=== PATIENT | female | born 1965 | race Caucasian/White ===

== ENCOUNTER 2016-07-25 11:27 | Emergency (ER) | payer MEDICARE ==
[2016-07-25 10:37] LABS: BASOPHILS 0.4 %; BASOPHILS ABSOLUTE 0.03 10/3/uL (0.0-0.16); EOSINOPHILS ABSOLUTE 0.07 10/3/uL (0.0-0.53); IMMATURE GRANULOCYTES 2.5 %; IMMATURE GRANULOCYTES ABSOLUTE 0.17 10/3/uL (0.0-0.11); LYMPHOCYTES 7.4 %; MEAN CORPUS HGB CONC 33.2 g/dL (32.0-36.0); MEAN CORPUSCULAR HEMOGLOB 30.6 pg (26.0-34.0); MEAN CORPUSCULAR VOLUME 92.2 fL (80-100); MEAN PLATELET VOLUME 9.5 fL (9.2-13.0); MONOCYTES 6.4 %; MONOCYTES ABSOLUTE 0.43 10/3/uL (0.21-1.20); NEUTROPHILS 82.3 %; NEUTROPHILS ABSOLUTE 5.53 10/3/uL (2.02-8.40); PLATELET COUNT 176 10/3/uL (150-400); RBC DISTRIBUTION WIDTH 14.2 % (12.0-16.0)
[2016-07-25 10:38] LABS: ER CBC TAT 0 Hrs 11 Mins; HEMATOCRIT 37.6 % (36.0-48.0); HEMOGLOBIN 12.5 g/dL (12.0-16.0); MANUAL DIFF NO %; RED CELL COUNT 4.08 10/6/uL (4.0-5.6); WHITE BLOOD CELLS 6.7 10/3/uL (4.5-10.5)
[2016-07-25 10:44] LABS: ASCORBIC ACID (UR NOT ORDER) NEG (NEG); BILIRUBIN, URINE NEGATIVE (NEG); ER URINALYSIS TAT 0 Hrs 08 Mins; KETONE, URINE NEGATIVE (NEG); LEUKOCYTE ESTERASE(NOT OR NEG (NEG); NITRITE (URINE) NEG (NEG); WBC (NOT ORDERED) (RFLEX) 1 (0-5)
[2016-07-25 10:46] LABS: INFLUENZA A SCREEN NEGATIVE (NEGATIVE); INFLUENZA B SCREEN NEGATIVE (NEGATIVE)
[2016-07-25 10:53] LABS: ALBUMIN 3.5 G/DL (3.5-5.0); ALKALINE PHOSPHATASE 135 U/L (45-117); BUN (BLOOD UREA NITROGEN) 31 MG/DL (6-23); CALCIUM, SERUM 8.8 MG/DL (8.5-10.4); CHLORIDE, SERUM 110 MMOL/L (96-112); CO2 (CARBON DIOXIDE) 22 MMOL/L (24-34); CREATININE 1.85 MG/DL (0.55-1.02); GFR AFRICAN AMERICAN 35 ML/MIN (>=60); GFR NON AFRICAN AMERICAN 31 ML/MIN (>=60); GLOBULIN 3.4 G/DL (2.5-4.1); GLUCOSE, SERUM 80 MG/DL (60-99); POTASSIUM, SERUM 3.6 MMOL/L (3.5-5.3); SGOT(AST) 16 U/L (5-40); SGPT(ALT) 10 U/L (5-65); SODIUM, SERUM 143 MMOL/L (135-148); TOTAL BILIRUBIN 0.6 MG/DL (0-1.2); TOTAL PROTEIN 6.9 G/DL (6.0-8.5)
[~2016-07-25 11:27] MED LIST: ACET500CAP PO; APRES50 PO; ASAB PO; BAC PO; CARTIA XT240 MG/24 PO; CAT1 PO; CATAPRES3 TOP; CEFT5 PO; CELLCEPT2 PO; CELLCEPT5 PO; CENTRUM PO; CENTRUM TAB1 TAB PO; CULTURELLE OTC; DEMA20 PO; DIOVAN320 MG PO; DSS PO; FERROUS SULF325 M1 PO; HYDRALAZINE100 MG PO; IMU PO; IRON325 MG PO; KLONO2 PO; KLONO5 PO; L20 PO; L40 PO; LEVAQUIN5T PO; LEVAQUIN750 MG PO; LIPITOR10 PO; LOM PO; MULTIVITAMI1 PO; MYFORTIC180 MG PO; NEXIUM40 PO; NORV5 PO; P10 PO; P20 PO; P5 PO; PRAV10 PO; PROGRAF0.5 PO; PROGRAF1 PO; SENSIPAR30 M1 OR; SENSIPAR30 M1 PO; SENSIPAR30 MG OR; SENSIPAR30 MG PO; SENSIPAR60 MG OR; SEPTRA1 TAB PO; SODBICAR10 PO; TAZTIA X3 PO; V2 PO; VANCOCIN HCL125 MG PO; VITD PO; VIVELLE SY0.1 MG/24 TOP; VIVELLE-DOT0.025 MG TOP; VIVELLE-DOT0.1 MG TOP; WELCHOL 625 MG625 MG PO; WELCHOL625 MG OR; ZOVI200CAP PO
[2017-01-03] MEDS ORDERED: HIPREX1 GM PO (10:58)
[2017-01-03] MEDS ORDERED: LEVAQUIN5T PO (10:58)
[2017-01-23] MEDS ORDERED: PREDNISONE DOSEPACK (16:41)
[2017-02-18] MEDS ORDERED: CATAPRES3 TOP (14:09)
[2017-02-18] MEDS ORDERED: CIP5 PO (14:09)
[2017-02-18] MEDS ORDERED: FLORASTOR250 MG PO (14:10)
[2017-02-18] MEDS ORDERED: ESTRACE VAGIN42.5 GM V (14:10)
[2017-02-18] MEDS ORDERED: MACRO50B PO (14:11)
[2017-02-18] MEDS ORDERED: PROLOP100 PO (14:12)
[2017-02-18] MEDS ORDERED: ZOVI200CAP PO (14:12)
[2017-02-18] MEDS ORDERED: KLONO2 PO (14:13)
[2017-02-18] MEDS ORDERED: FERROUS SULF325 M1 PO (14:14)
[2017-02-18] MEDS ORDERED: DEMA20 PO ×2 (14:14)
[2017-02-18] MEDS ORDERED: SENSIPAR30 M1 PO (14:15)
[2017-02-18] MEDS ORDERED: PRAV10 PO (14:15)
[2017-02-18] MEDS ORDERED: PRILO PO (14:18)
[2017-02-18] MEDS ORDERED: VITD PO (14:18)
[2017-02-18] MEDS ORDERED: P20 PO (14:19)
[2017-02-18] MEDS ORDERED: P10 PO (14:19)
[2017-02-18] MEDS ORDERED: HYDRALAZINE100 MG PO (14:20)
[2017-02-18] MEDS ORDERED: CELLCEPT5 PO (14:20)
[2017-02-18] MEDS ORDERED: TAZTIA X3 PO (14:21)
[2017-02-18] MEDS ORDERED: CAT1 PO (14:21)
[2017-02-18] MEDS ORDERED: PROGRAF0.5 PO (14:21)
[2017-02-18] MEDS ORDERED: MULTIVIT/MIN PO (14:22)
[2017-02-18] MEDS ORDERED: CEFADROXIL1 GM PO (14:23)
[2017-02-18] MEDS ORDERED: HIPREX1 GM PO (14:23)
[2017-02-18] MEDS ORDERED: ACET500CAP PO (14:24)
[2017-02-22] MEDS ORDERED: COREG12 PO (15:44)
[2017-02-22] MEDS ORDERED: DURICEF PO (15:44)
== END 2016-07-25 11:35 | disposition home or self-care (01) ==
LOC: ER 11:27
PROVIDERS: Emergency Medicine
DX: J40 Bronchitis, not specified as acute or chronic (principal); I12.9 Hypertensive chronic kidney disease with stage 1 through stage 4 chronic kidney disease, or unspecified chronic kidney disease; N18.9 Chronic kidney disease, unspecified; Z94.0 Kidney transplant status; Z90.710 Acquired absence of both cervix and uterus; Z79.52 Long term (current) use of systemic steroids; Z79.899 Other long term (current) drug therapy
CPT/HCPCS: 71020; 80053; 81001; 85025; 87070; 87205; 87804; 96372; 99284

== ENCOUNTER 2016-09-13 05:59 | Inpatient (IN) | payer MEDICARE ==
--- NOTE | ~2016-09-13 | CN ---
Consultation Report [facility] [address] [place]. [address] NAME: THIERRY GLASGOW : 61 STATUS : ADM IN PAT#: [id number] AGE: 51 ADM/REG DATE : 09/14/16 MR#: [id number] REPORT SERV DATE: 09/14/16 DICTATED BY: RAÚL BHANDARI DATE: 09/14/16 REPORT STATUS : Draft TRANSCRIBED BY: MODL DATE: 09/14/16 INFECTIOUS DISEASE CONSULT DATE OF CONSULTATION: REASON FOR REFERRAL: Evaluation and treatment of infection in a renal transplant patient. HISTORY OF PRESENT ILLNESS: The patient is a 51-year-old female. She has a history of hypertension, obesity, polycystic kidney disease, which eventually led to end-stage renal disease, for that she underwent a , unrelated donor kidney transplant at [facility] in 2008. She has had also post-transplant lymphoproliferative disorder, and has been followed by Dr. Navarro, and that is currently in remission. She had generally been doing well and has noted any infections of any kind for almost a year. She developed some "bad smelling urine" last week, went ahead and got checked, and it was negative. That continued and then she developed dysuria and then high-spiking fevers two days ago and came in and was admitted that night. Urine was collected and it showed large leukocyte esterase positive and greater than 182 white blood cells. Today, urine is growing greater than 100,000 colonies of gram- negative shari. Blood cultures thus far are negative. She has continued to have fever. She has been on Rocephin now for just over 24 hours. Vancomycin was added earlier today, but that has been discontinued with the positive results of the urine culture. She is not complaining of headache, stiff neck, cough, or shortness of breath. She has had some nausea and a couple of episodes of diarrhea. No joint pain or skin rash. She lives in this area with her . He has not been ill. She has not traveled outside this area. She has a cat but no other animal exposure. Does not work outside the home, has had no unusual environmental exposures. PAST MEDICAL HISTORY: Otherwise unremarkable. MEDICATIONS: As described above. No known antimicrobial allergies. Nonsmoker. No history of alcohol or substance abuse, does not work outside the home. . Her is with her in the room. FAMILY HISTORY: Noncontributory. PHYSICAL EXAMINATION: GENERAL: On physical exam, nontoxic but tired-appearing adult female, in no acute distress at present. Alert and oriented x3. VITAL SIGNS: Temperature 99.7 at present with a pulse of 81, respirations 18, and blood pressure 157/70. Weight is 104 kg. HEENT: Sclerae clear. No oral lesions. NECK: Supple. Consultation Report [address] [place]. [address] NAME: THIERRY GLASGOW : 61 STATUS : ADM IN LOCATED WITHIN [facility]#: [id number] AGE: 51 ADM/REG DATE : 09/14/16 MR#: [id number] REPORT SERV DATE: 09/14/16 DICTATED BY: RAÚL BHANDARI DATE: 09/14/16 REPORT STATUS : Draft TRANSCRIBED BY: ALINE DATE: 09/14/16 LUNGS: Clear. HEART: Regular rate and rhythm. ABDOMEN: Soft, nontender. She has some mild costovertebral angle tenderness on the right side at which side, the transplanted kidney is on. EXTREMITIES: Without clubbing, cyanosis, or edema. No signs of cellulitis. LABORATORY DATA: White blood cell count 14.3, hematocrit 33.2, and platelets 172, normal differential on the white blood cell count. BUN and creatinine are 36 and 3.91, was 1.85 on 07/25. IMPRESSION: Suspect this is indeed pyelonephritis as a source for fever. I do not see any other likely sources. She does have gram-negative rods in her urine. In fact I am somewhat surprised her blood cultures were not positive. RECOMMENDATIONS: 1. We will change antibiotics to cefepime for better gram-negative coverage. We would also usually give a single dose of gentamicin but with the transplanted kidney, we will hold off on that. 2. Follow up cultures tomorrow. Change antibiotics as indicated. Finally, I will follow the patient with you. 3. I appreciate very much for your consulting on this patient. REYNA Raúl Bhandari M.D. / [id number] CC: Conrado Vora M.D. Rico Mcgill Jr, M.D.
--- NOTE | ~2016-09-13 | HP ---
History And Physical [address] [place]. [address] NAME: THIERRY GLASGOW : 61 STATUS : ADM Clem PAT#: [id number] AGE: 51 ADM/REG DATE : 09/13/16 MR#: [id number] REPORT SERV DATE: 09/13/16 DICTATED BY: DATE: REPORT STATUS : Draft TRANSCRIBED BY: MODL DATE: 09/13/16 DATE OF ADMISSION: 09/13/2016 CHIEF COMPLAINT: Fever and dysuria. HISTORY OF PRESENT ILLNESS: Ms Glasgow is a very pleasant, 51-year-old white female with a history of renal transplant at [facility], donor in 2008, followed in office by Dr. Vora. She is known to have polycystic kidney disease, recurrent UTIs. She states that she noticed last week an odor to her urine, went to the office, had a urine culture obtained, it came back negative, no antibiotics were provided. She was feeling relatively well and then last night at approximately 9:30, developed dysuria, followed by fever up to 103 at home, therefore presented to the emergency department. No nausea or vomiting. In general, today just body aches. Denies any shortness of breath, chest pain, tightness, or pressure. Denied any hematuria. No nausea or vomiting. PAST MEDICAL HISTORY: End-stage renal disease, transplant kidney in 2008 at [facility], polycystic kidney disease, hypertension, obesity, secondary hyperparathyroidism, anemia, and reflux. She also has posttransplant lymphoproliferative disorder, followed by Dr. Navarro, in remission. FAMILY MEDICAL HISTORY: End-stage renal disease in her mother. SOCIAL HISTORY: She is . No tobacco, alcohol, or illicit drug use. ALLERGIES: TOPAMAX, IODINE, AND IV DYE. MEDICATIONS: Cetirizine, Sensipar, Prograf, prednisone, pravastatin, Nexium, multivitamin, meclizine, Klonopin, hydralazine, Drisdol, Demadex, clonidine, CellCept, Bactrim, and acyclovir. REVIEW OF SYSTEMS: 12-point review of systems obtained, negative with the exception of that in HPI. PHYSICAL EXAMINATION: VITAL SIGNS: Temperature 102.7, blood pressure 190/78, pulse 90, respiratory rate 24, O2 saturation is 95%. GENERAL: This is a pleasant, cooperative, white female. She is awake, alert, and oriented x3. No acute distress and answers questions appropriately. HEENT: Normocephalic and atraumatic. Conjunctivae clear. Sclerae anicteric. Pupils are equal and round. Oral mucosa moist. NECK: No neck vein distention. PULMONARY: Respirations are even and unlabored. Breath sounds are clear to auscultation. CARDIOVASCULAR: Heart rate regular. No murmur, rub, or gallop. ABDOMEN: Soft. She has a transplanted kidney palpable to the right lower quadrant with some mild tenderness and no CVA tenderness. EXTREMITIES: Lower extremities without edema. History And Physical [address] [address] NAME: THIERRY GLASGOW : 61 STATUS : ADM Clem PAT#: [id number] AGE: 51 ADM/REG DATE : 09/13/16 MR#: [id number] REPORT SERV DATE: 09/13/16 DICTATED BY: DATE: REPORT STATUS : Draft TRANSCRIBED BY: MODL DATE: 09/13/16 SKIN: Warm, dry, and intact. No unusual rash or skin lesions. NEUROLOGIC: No focal deficits. Mood and affect, pleasant appropriate. PERTINENT LABS AND X-RAYS: Chest x-ray is negative. WBCs 13,000, H and H 11 and 36, platelets 195,000. Sodium 141, potassium 3.8, chloride 107, CO2 20, BUN 41, creatinine of 2.3, albumin of 3.8, LFTs are unremarkable. Procalcitonin was normal and lactate 0.6. Urinalysis with 100 mg/dL of protein, moderate amount leukocyte esterase, positive small blood. On microscopic exam, 15 red blood cells per high-power field, greater than 182 white blood cells per high-power field with rare white blood cell clumps and rare bacteria. IMPRESSION: 1. Urinary tract infection. 2. Fever. 3. Renal transplant. 4. Leukocytosis. 5. Polycystic kidney disease. 6. Posttransplant lymphoproliferative disorder. PLAN: She is going to be admitted with empiric antibiotics as Rocephin at this time. Follow up on urine and blood cultures. Usual medicines to include her transplant medications, antiemetics and pain medicine as needed. Further orders and recommendations pending clinical course. MIKEY/ALINE ROGELIO Brandon / [id number] CC: Conrado Vora M.D.
--- NOTE | ~2016-09-13 | DS ---
Discharge Summary [facility] [address] [place]. [address] NAME: THIERRY GLASGOW : 61 STATUS : DIS IN PAT#: [id number] AGE: 51 ADM/REG DATE : 09/14/16 MR#: [id number] REPORT SERV DATE: 09/29/16 DICTATED BY: GLADYS VORA DATE: 09/28/16 REPORT STATUS : Draft TRANSCRIBED BY: ALINE DATE: 09/28/16 Data Collection from hospitalization DISCHARGE DIAGNOSES: 1. Pyelonephritis - Escherichia coli. 2. Acute kidney injury/chronic kidney disease - history of renal transplant. 3. Hypertension. 4. History of posttransplant lymphoproliferative disorder. 5. Polycystic kidney disease. 6. Obesity. 7. Secondary hyperparathyroidism. 8. Anemia. 9. Reflux. CONSULTATIONS: Fortunato Shaw M.D. PROCEDURES PERFORMED: 1. CT scan of the abdomen and pelvis - kidney stone protocol on 09/13/2016. 2. Ultrasound of the bladder on 09/17/2016. MEDICATIONS: Tylenol Caplet 1000 mg twice a day as needed, Zovirax 200 mg twice a day, Ceftin 250 mg twice a day, Zyrtec 10 mg daily as needed, Sensipar 30 mg every morning, Klonopin 2 mg at bedtime, Catapres 0.1 mg every morning, Catapres TTS 0.3 mg topically every seven days, Cartia XT 360 mg every morning, vitamin D 50,000 units every 14 days, Nexium 40 mg every morning, ferrous sulfate 325 mg twice a day, hydralazine 100 mg with meals, multivitamins with minerals one tablet every morning, CellCept 500 mg twice a day, Pravachol 10 mg every morning, Deltasone 15 mg every morning, Prograf 0.5 mg daily, and Demadex 20 mg twice a day. CONDITION AT DISCHARGE: Stable. DISPOSITION: The patient was discharged home on a regular diet with activities as instructed. She would follow up with me on 09/25/2016. HOSPITAL COURSE: This is a 51-year-old female who has a history of renal transplant at [facility], donor in 2008. She is known to have polycystic kidney disease and recurrent urinary tract infections. She said that she noticed the week prior to this admission an odor to her urine. She went to the office and had a urine culture obtained, this came back negative and no antibiotics were provided. She was feeling relatively well, and then on the night prior to this admission around 9:30 p.m., she developed dysuria followed by fever up to 103 at home. She presented to the emergency department. She complained of body aches. She denied shortness of breath, chest pain, tightness or pressure. She denied any hematuria, nausea, or vomiting. She was admitted to the hospital at this time for further evaluation and treatment. Upon admission, her white blood cell count was 13,000. She was found to have a urinary tract infection. Creatinine level was 2.3. Rocephin was started. Followup blood and urine cultures were obtained. CT scan of the abdomen and pelvis - kidney stone protocol was Discharge Summary [address] [address] NAME: THIERRY GLASGOW : 61 STATUS : DIS IN PAT#: [id number] AGE: 51 ADM/REG DATE : 09/14/16 MR#: [id number] REPORT SERV DATE: 09/29/16 DICTATED BY: GLADYS VORA DATE: 09/28/16 REPORT STATUS : Draft TRANSCRIBED BY: ALINE DATE: 09/28/16 performed. She does have a small hiatal hernia. Gallbladder appeared normal. Spleen appeared normal. There were bilaterally enlarged kidneys with numerous cysts consistent with polycystic kidney disease. The urinary bladder was decompressed. There was diverticulosis with no inflammation. The following day, she was seen by Dr. Fortunato Shaw for evaluation and treatment of infection in a renal transplant patient. Her urine had shown large leukocyte esterase positive and greater than 182 white blood cells. At the time of consultation, her urine was growing greater than 100,000 colonies of gram-negative rods. Blood cultures thus far were negative. She continued to have a fever. She had been on Rocephin for just over 24 hours. Vancomycin had been added earlier in the day, but that had been discontinued with the positive results of the urine culture. She did have some nausea and a couple of episodes of diarrhea. White blood cell count was 14.3. Creatinine was 3.91. It was suspected that this indeed with pyelonephritis as a source for the fever. He did not see any other likely sources. She does have gram-negative rods in her urine. In fact, he was somewhat surprised that her blood cultures were not positive. He recommended that we change the antibiotic to cefepime for better gram-negative coverage. We would follow up the cultures the following day, and change antibiotics as indicated. On 09/15/2016, she still complained of some nausea and was unable to keep anything down. Blood cultures were negative. White count was 8.6. C. difficile study was obtained. Her T-max was 103. Prograf was stopped. IV fluids were decreased. Diuretic was held. She said she felt a little better. Her blood cultures remained negative. The next day, she had no nausea or vomiting. She said she was feeling better. IV fluids were stopped. Prograf remained on hold. On 09/17/2016, she did have some shortness of breath and PND. she was in no acute distress. Creatinine was decreasing. She had been found to have E. coli pyelonephritis. She was going to remain on her oral antibiotics for 14 days. Discharge instructions were given. Due to her improved and stable condition, she was discharged home with the above-stated instructions. Information collected by: Alea Fitzgerald I submit the above information as my discharge summary. TG/ALINE Gladys Vora M.D. / [id number] CC: Richard Fragoso M.D.
[2016-09-13 04:51] LABS: ASCORBIC ACID (UR NOT ORDER) NEG (NEG); BILIRUBIN, URINE NEGATIVE (NEG); ER URINALYSIS TAT 0 Hrs 00 Mins; KETONE, URINE NEGATIVE (NEG); LEUKOCYTE ESTERASE(NOT OR MOD (NEG); NITRITE (URINE) NEG (NEG)
[2016-09-13 04:52] LABS: WBC (NOT ORDERED) (RFLEX) > 182 (0-5)
[2016-09-13 05:25] LABS: BASOPHILS 0.1 %; BASOPHILS ABSOLUTE 0.01 10/3/uL (0.0-0.16); EOSINOPHILS 0 %; HEMATOCRIT 36.4 % (36.0-48.0); HEMOGLOBIN 11.9 g/dL (12.0-16.0); IMMATURE GRANULOCYTES ABSOLUTE 0.14 10/3/uL (0.0-0.11); LYMPHOCYTES 7.3 %; MEAN CORPUS HGB CONC 32.7 g/dL (32.0-36.0); MEAN CORPUSCULAR HEMOGLOB 30.5 pg (26.0-34.0); MEAN CORPUSCULAR VOLUME 93.3 fL (80-100); MEAN PLATELET VOLUME 9.8 fL (9.2-13.0); MONOCYTES 7.5 %; MONOCYTES ABSOLUTE 1.03 10/3/uL (0.21-1.20); NEUTROPHILS 84.1 %; NEUTROPHILS ABSOLUTE 11.58 10/3/uL (2.02-8.40); PLATELET COUNT 195 10/3/uL (150-400); RBC DISTRIBUTION WIDTH 14.8 % (12.0-16.0)
[2016-09-13 05:26] LABS: ER CBC TAT 0 Hrs 05 Mins; MANUAL DIFF NO %; WHITE BLOOD CELLS 13.8 10/3/uL (4.5-10.5)
[2016-09-13 05:41] LABS: ALBUMIN 3.8 G/DL (3.5-5.0); CALCIUM, SERUM 8.5 MG/DL (8.5-10.4); CHLORIDE, SERUM 107 MMOL/L (96-112); CO2 (CARBON DIOXIDE) 20 MMOL/L (24-34); GLOBULIN 3.7 G/DL (2.5-4.1); GLUCOSE, SERUM 88 MG/DL (60-99); POTASSIUM, SERUM 3.8 MMOL/L (3.5-5.3); SGOT(AST) 17 U/L (5-40); SGPT(ALT) 13 U/L (5-65); SODIUM, SERUM 141 MMOL/L (135-148); TOTAL BILIRUBIN 0.5 MG/DL (0-1.2); TOTAL PROTEIN 7.5 G/DL (6.0-8.5)
[2016-09-13 05:42] LABS: ALKALINE PHOSPHATASE 148 U/L (45-117); BUN (BLOOD UREA NITROGEN) 41 MG/DL (6-23); CREATININE 2.38 MG/DL (0.55-1.02); GFR AFRICAN AMERICAN 26 ML/MIN (>=60); GFR NON AFRICAN AMERICAN 23 ML/MIN (>=60)
[2016-09-13 05:45] LABS: LACTATE 0.6 MMOL/L (0.3-2.4)
[2016-09-13 06:26] LABS: PROCALCITONIN 0.16 ng/mL (<0.5)
[2016-09-13 06:43] LABS: INTERNATIONAL NORMAL RATI 1.1 UNITS (-)
[2016-09-13 06:44] LABS: PARTIAL THROMBO TIME 34.2 SEC (22.5-37.2)
[2016-09-13] MEDS ORDERED: DEMA20 PO (12:37)
[2016-09-13] MEDS ORDERED: HYDRALAZINE100 MG PO (12:38)
[2016-09-13] MEDS ORDERED: KLONO2 PO (12:38)
[2016-09-13] MEDS ORDERED: CATAPRES3 TOP (12:39)
[2016-09-13] MEDS ORDERED: SENSIPAR30 M1 PO (12:39)
[2016-09-13] MEDS ORDERED: ZYRTEC ALLGY10 MG PO (12:40)
[2016-09-13] MEDS ORDERED: TAZTIA X3 PO (12:40)
[2016-09-13] MEDS ORDERED: ZOVI200CAP PO (12:41)
[2016-09-13] MEDS ORDERED: PRAV10 PO (12:42)
[2016-09-13] MEDS ORDERED: BACDS PO (12:42)
[2016-09-13] MEDS ORDERED: FERROUS SULF325 M1 PO (12:42)
[2016-09-13] MEDS ORDERED: NEXIUM40 PO (12:43)
[2016-09-13] MEDS ORDERED: VITD PO (12:44)
[2016-09-13] MEDS ORDERED: CAT1 PO (12:44)
[2016-09-13] MEDS ORDERED: THERGRANM PO (12:46)
[2016-09-13] MEDS ORDERED: P20 PO (12:47)
[2016-09-13] MEDS ORDERED: CELLCEPT5 PO (12:47)
[2016-09-13] MEDS ORDERED: PROGRAF0.5 PO (12:48)
[2016-09-13] MEDS ORDERED: ACET500CAP PO (12:49)
[2016-09-14 06:10] LABS: BASOPHILS 0.1 %; BASOPHILS ABSOLUTE 0.02 10/3/uL (0.0-0.16); EOSINOPHILS 0 %; HEMATOCRIT 33.2 % (36.0-48.0); HEMOGLOBIN 11.1 g/dL (12.0-16.0); IMMATURE GRANULOCYTES 0.6 %; IMMATURE GRANULOCYTES ABSOLUTE 0.09 10/3/uL (0.0-0.11); LYMPHOCYTES 7.3 %; LYMPHOCYTES ABSOLUTE 1.04 10/3/uL (0.67-4.30); MEAN CORPUS HGB CONC 33.4 g/dL (32.0-36.0); MEAN CORPUSCULAR HEMOGLOB 31.7 pg (26.0-34.0); MEAN CORPUSCULAR VOLUME 94.9 fL (80-100); MEAN PLATELET VOLUME 10.1 fL (9.2-13.0); MONOCYTES 8.5 %; MONOCYTES ABSOLUTE 1.21 10/3/uL (0.21-1.20); NEUTROPHILS 83.5 %; NEUTROPHILS ABSOLUTE 11.91 10/3/uL (2.02-8.40); PLATELET COUNT 172 10/3/uL (150-400); RBC DISTRIBUTION WIDTH 15.1 % (12.0-16.0); WHITE BLOOD CELLS 14.3 10/3/uL (4.5-10.5)
[2016-09-14 06:12] LABS: MANUAL DIFF NO %
[2016-09-14 06:15] LABS: ALBUMIN 2.9 G/DL (3.5-5.0); BUN (BLOOD UREA NITROGEN) 36 MG/DL (6-23); CALCIUM, SERUM 8.2 MG/DL (8.5-10.4); CHLORIDE, SERUM 110 MMOL/L (96-112); CO2 (CARBON DIOXIDE) 16 MMOL/L (24-34); CREATININE 2.91 MG/DL (0.55-1.02); GFR AFRICAN AMERICAN 20 ML/MIN (>=60); GFR NON AFRICAN AMERICAN 18 ML/MIN (>=60); GLUCOSE, SERUM 89 MG/DL (60-99); PHOSPHORUS, SERUM 3.2 MG/DL (2.5-4.5); POTASSIUM, SERUM 3.9 MMOL/L (3.5-5.3); SODIUM, SERUM 141 MMOL/L (135-148)
[2016-09-15 06:35] LABS: HEMOGLOBIN 9.9 g/dL (12.0-16.0); MEAN CORPUSCULAR HEMOGLOB 30.7 pg (26.0-34.0); MEAN CORPUSCULAR VOLUME 92.9 fL (80-100); MEAN PLATELET VOLUME 10.2 fL (9.2-13.0); PLATELET COUNT 153 10/3/uL (150-400); RBC DISTRIBUTION WIDTH 14.9 % (12.0-16.0); RED CELL COUNT 3.23 10/6/uL (4.0-5.6); WHITE BLOOD CELLS 8.6 10/3/uL (4.5-10.5)
[2016-09-15 06:44] LABS: ALBUMIN 2.7 G/DL (3.5-5.0); CALCIUM, SERUM 8.4 MG/DL (8.5-10.4); CHLORIDE, SERUM 107 MMOL/L (96-112); CO2 (CARBON DIOXIDE) 17 MMOL/L (24-34); GLUCOSE, SERUM 94 MG/DL (60-99); MANUAL DIFF YES %; POTASSIUM, SERUM 3.8 MMOL/L (3.5-5.3); SODIUM, SERUM 139 MMOL/L (135-148)
[2016-09-15 06:45] LABS: BUN (BLOOD UREA NITROGEN) 43 MG/DL (6-23); CREATININE 3.59 MG/DL (0.55-1.02); GFR AFRICAN AMERICAN 16 ML/MIN (>=60); GFR NON AFRICAN AMERICAN 14 ML/MIN (>=60); PHOSPHORUS, SERUM 5.4 MG/DL (2.5-4.5)
[2016-09-15 07:35] LABS: BAND NEUTROPHILS 4 %; IMMATURE GRANS ABSOLUTE (CALC) 0.09 10/3/uL (0.0-0.11); METAMYELOCYTES 1 %; MONOCYTES 3 %; MONOCYTES ABSOLUTE (CALC) 0.26 10/3/uL (0.21-1.20); NEUTROPHILS ABSOLUTE (CALC) 8.26 10/3/uL (2.02-8.40); PLATELET ESTIMATE ADQ (ADEQUATE); SEGMENTED NEUTROPHIL (0) 92 %; TOTAL NUCLEATED CELLS 100
[2016-09-15 07:36] LABS: POLYCHROMASIA 1+ (2-5/OIF) (0-1/OIF)
[2016-09-16 07:26] LABS: ALBUMIN 2.9 G/DL (3.5-5.0); CHLORIDE, SERUM 108 MMOL/L (96-112); CREATININE 3.32 MG/DL (0.55-1.02); GFR AFRICAN AMERICAN 17 ML/MIN (>=60); GFR NON AFRICAN AMERICAN 15 ML/MIN (>=60); PHOSPHORUS, SERUM 4.5 MG/DL (2.5-4.5); POTASSIUM, SERUM 4.4 MMOL/L (3.5-5.3); SODIUM, SERUM 136 MMOL/L (135-148)
[2016-09-16 07:28] LABS: BUN (BLOOD UREA NITROGEN) 51 MG/DL (6-23); CALCIUM, SERUM 9.4 MG/DL (8.5-10.4); CO2 (CARBON DIOXIDE) 15 MMOL/L (24-34); GLUCOSE, SERUM 142 MG/DL (60-99)
[2016-09-16 07:49] LABS: HEMATOCRIT 28.3 % (36.0-48.0); HEMOGLOBIN 9.7 g/dL (12.0-16.0); MEAN CORPUS HGB CONC 34.3 g/dL (32.0-36.0); MEAN PLATELET VOLUME 10.7 fL (9.2-13.0); PLATELET COUNT 123 10/3/uL (150-400); RBC DISTRIBUTION WIDTH 15.6 % (12.0-16.0); RED CELL COUNT 2.87 10/6/uL (4.0-5.6); WHITE BLOOD CELLS 5.6 10/3/uL (4.5-10.5)
[2016-09-16 08:38] LABS: ANISOCYTOSIS 1+ (5-10/OIF) (0-5/OIF); BAND NEUTROPHILS 4 %; LYMPHOCYTES 7 %; MANUAL DIFF YES %; MEAN CORPUSCULAR HEMOGLOB 33.8 pg (26.0-34.0); MEAN CORPUSCULAR VOLUME 98.6 fL (80-100); MONOCYTES 2 %; PLATELET ESTIMATE SLT DEC (ADEQUATE); SEGMENTED NEUTROPHIL (0) 87 %; TOTAL NUCLEATED CELLS 100
[2016-09-17 06:45] LABS: ALBUMIN 2.9 G/DL (3.5-5.0); CHLORIDE, SERUM 107 MMOL/L (96-112); CO2 (CARBON DIOXIDE) 18 MMOL/L (24-34); CREATININE 3.14 MG/DL (0.55-1.02); GFR AFRICAN AMERICAN 19 ML/MIN (>=60); GFR NON AFRICAN AMERICAN 16 ML/MIN (>=60); GLUCOSE, SERUM 150 MG/DL (60-99); PHOSPHORUS, SERUM 3.6 MG/DL (2.5-4.5); POTASSIUM, SERUM 4.3 MMOL/L (3.5-5.3); SODIUM, SERUM 136 MMOL/L (135-148)
[2016-09-17 06:46] LABS: BUN (BLOOD UREA NITROGEN) 60 MG/DL (6-23)
[2016-09-18 06:01] LABS: BASOPHILS 0.1 %; BASOPHILS ABSOLUTE 0.01 10/3/uL (0.0-0.16); EOSINOPHILS 0 %; HEMATOCRIT 30.5 % (36.0-48.0); HEMOGLOBIN 10.2 g/dL (12.0-16.0); IMMATURE GRANULOCYTES 3.9 %; IMMATURE GRANULOCYTES ABSOLUTE 0.37 10/3/uL (0.0-0.11); LYMPHOCYTES 5.3 %; MEAN CORPUS HGB CONC 33.4 g/dL (32.0-36.0); MEAN PLATELET VOLUME 10.4 fL (9.2-13.0); MONOCYTES 7.1 %; MONOCYTES ABSOLUTE 0.67 10/3/uL (0.21-1.20); NEUTROPHILS 83.6 %; NEUTROPHILS ABSOLUTE 7.94 10/3/uL (2.02-8.40); RBC DISTRIBUTION WIDTH 14.2 % (12.0-16.0); RED CELL COUNT 3.38 10/6/uL (4.0-5.6)
[2016-09-18 06:02] LABS: MANUAL DIFF NO %; MEAN CORPUSCULAR HEMOGLOB 30.2 pg (26.0-34.0); MEAN CORPUSCULAR VOLUME 90.2 fL (80-100); PLATELET COUNT 214 10/3/uL (150-400); WHITE BLOOD CELLS 9.5 10/3/uL (4.5-10.5)
[2016-09-18 06:16] LABS: ALBUMIN 3.2 G/DL (3.5-5.0); CHLORIDE, SERUM 108 MMOL/L (96-112); CO2 (CARBON DIOXIDE) 20 MMOL/L (24-34); GLUCOSE, SERUM 124 MG/DL (60-99); PHOSPHORUS, SERUM 3.3 MG/DL (2.5-4.5); POTASSIUM, SERUM 4.4 MMOL/L (3.5-5.3); SGOT(AST) 15 U/L (5-40); SGPT(ALT) 36 U/L (5-65); SODIUM, SERUM 140 MMOL/L (135-148); TOTAL BILIRUBIN 0.4 MG/DL (0-1.2); TOTAL PROTEIN 6.8 G/DL (6.0-8.5)
[2016-09-18 06:18] LABS: ALKALINE PHOSPHATASE 104 U/L (45-117); BUN (BLOOD UREA NITROGEN) 67 MG/DL (6-23); CREATININE 2.64 MG/DL (0.55-1.02); DIRECT BILIRUBIN < 0.1 MG/DL (0.0-0.4); GFR AFRICAN AMERICAN 23 ML/MIN (>=60); GFR NON AFRICAN AMERICAN 20 ML/MIN (>=60); INDIRECT BILIRUBIN(NOT ORDER) 0.3 MG/DL (0.1-0.9)
[2016-09-19 06:21] LABS: HEMATOCRIT 31.8 % (36.0-48.0); HEMOGLOBIN 10.6 g/dL (12.0-16.0); MEAN CORPUS HGB CONC 33.3 g/dL (32.0-36.0); MEAN CORPUSCULAR HEMOGLOB 31.3 pg (26.0-34.0); MEAN PLATELET VOLUME 10.2 fL (9.2-13.0); PLATELET COUNT 230 10/3/uL (150-400); RBC DISTRIBUTION WIDTH 14.3 % (12.0-16.0); RED CELL COUNT 3.39 10/6/uL (4.0-5.6); WHITE BLOOD CELLS 11.4 10/3/uL (4.5-10.5)
[2016-09-19 06:23] LABS: MANUAL DIFF YES %; MEAN CORPUSCULAR VOLUME 93.8 fL (80-100)
[2016-09-19 06:28] LABS: ALBUMIN 3.1 G/DL (3.5-5.0); BUN (BLOOD UREA NITROGEN) 68 MG/DL (6-23); CALCIUM, SERUM 9.3 MG/DL (8.5-10.4); CHLORIDE, SERUM 110 MMOL/L (96-112); CO2 (CARBON DIOXIDE) 19 MMOL/L (24-34); CREATININE 2.27 MG/DL (0.55-1.02); GFR AFRICAN AMERICAN 28 ML/MIN (>=60); GFR NON AFRICAN AMERICAN 24 ML/MIN (>=60); GLUCOSE, SERUM 112 MG/DL (60-99); PHOSPHORUS, SERUM 3.2 MG/DL (2.5-4.5); POTASSIUM, SERUM 4.3 MMOL/L (3.5-5.3); SODIUM, SERUM 141 MMOL/L (135-148)
[2016-09-19 06:56] LABS: BAND NEUTROPHILS 4 %; IMMATURE GRANS ABSOLUTE (CALC) 0.34 10/3/uL (0.0-0.11); LYMPHOCYTES 7 %; METAMYELOCYTES 3 %; MONOCYTES 2 %; MONOCYTES ABSOLUTE (CALC) 0.23 10/3/uL (0.21-1.20); NEUTROPHILS ABSOLUTE (CALC) 10.03 10/3/uL (2.02-8.40); PLATELET ESTIMATE ADQ (ADEQUATE); SEGMENTED NEUTROPHIL (0) 84 %; TOTAL NUCLEATED CELLS 100
[2016-09-19] MEDS ORDERED: CEFT2 PO (11:36)
[2017-01-03] MEDS ORDERED: HIPREX1 GM PO (10:58)
[2017-01-03] MEDS ORDERED: LEVAQUIN5T PO (10:58)
[2017-01-23] MEDS ORDERED: PREDNISONE DOSEPACK (16:41)
[2017-02-18] MEDS ORDERED: CATAPRES3 TOP (14:09)
[2017-02-18] MEDS ORDERED: CIP5 PO (14:09)
[2017-02-18] MEDS ORDERED: ESTRACE VAGIN42.5 GM V (14:10)
[2017-02-18] MEDS ORDERED: FLORASTOR250 MG PO (14:10)
[2017-02-18] MEDS ORDERED: MACRO50B PO (14:11)
[2017-02-18] MEDS ORDERED: ZOVI200CAP PO (14:12)
[2017-02-18] MEDS ORDERED: PROLOP100 PO (14:12)
[2017-02-18] MEDS ORDERED: KLONO2 PO (14:13)
[2017-02-18] MEDS ORDERED: DEMA20 PO ×2 (14:14)
[2017-02-18] MEDS ORDERED: FERROUS SULF325 M1 PO (14:14)
[2017-02-18] MEDS ORDERED: SENSIPAR30 M1 PO (14:15)
[2017-02-18] MEDS ORDERED: PRAV10 PO (14:15)
[2017-02-18] MEDS ORDERED: PRILO PO (14:18)
[2017-02-18] MEDS ORDERED: VITD PO (14:18)
[2017-02-18] MEDS ORDERED: P20 PO (14:19)
[2017-02-18] MEDS ORDERED: P10 PO (14:19)
[2017-02-18] MEDS ORDERED: HYDRALAZINE100 MG PO (14:20)
[2017-02-18] MEDS ORDERED: CELLCEPT5 PO (14:20)
[2017-02-18] MEDS ORDERED: CAT1 PO (14:21)
[2017-02-18] MEDS ORDERED: PROGRAF0.5 PO (14:21)
[2017-02-18] MEDS ORDERED: TAZTIA X3 PO (14:21)
[2017-02-18] MEDS ORDERED: MULTIVIT/MIN PO (14:22)
[2017-02-18] MEDS ORDERED: HIPREX1 GM PO (14:23)
[2017-02-18] MEDS ORDERED: CEFADROXIL1 GM PO (14:23)
[2017-02-18] MEDS ORDERED: ACET500CAP PO (14:24)
[2017-02-22] MEDS ORDERED: DURICEF PO (15:44)
[2017-02-22] MEDS ORDERED: COREG12 PO (15:44)
== END 2016-09-19 12:17 | disposition home or self-care (01) | DRG 699 ==
LOC: ER 05:59 → 4SO 06:44
PROVIDERS: Internal Medicine Nephrology; Nurse Practitioner; Registered Nurse
DX: T86.13 Kidney transplant infection (principal); N12 Tubulo-interstitial nephritis, not specified as acute or chronic; D47.Z1 Post-transplant lymphoproliferative disorder (PTLD); N17.9 Acute kidney failure, unspecified; Q61.2 Polycystic kidney, adult type; N39.0 Urinary tract infection, site not specified; Z79.891 Long term (current) use of opiate analgesic; Z79.899 Other long term (current) drug therapy; Z79.52 Long term (current) use of systemic steroids; E66.9 Obesity, unspecified; K21.9 Gastro-esophageal reflux disease without esophagitis; I12.9 Hypertensive chronic kidney disease with stage 1 through stage 4 chronic kidney disease, or unspecified chronic kidney disease; B96.20 Unspecified Escherichia coli [E. coli] as the cause of diseases classified elsewhere; Z87.891 Personal history of nicotine dependence; Z68.35 Body mass index [BMI] 35.0-35.9, adult
CPT/HCPCS: 71010; 71020; 74176; 76705; 80053; 80069; 80076; 81001; 83605; 83735; 83880; 84145; 85025; 85610; 85730; 87040; 87077; 87086; 87186; 87493; 87493-59; 93005; 96374; 99285; A9270-GY; J0692; J2405; J2550; J2920; J3370